=== PATIENT | female | born 1955 | race Caucasian/White ===

== ENCOUNTER → 2022-02-02 | Outpatient (CLI) | payer MEDICARE, OTHER ==
[~2022-02-02] MED LIST: REGADENOSON 0.4 MG/5 ML DISP.SYRIN. IV ONE
--- NOTE | 2022-02-03 07:48 | RAD ---
MR#: [id number] Date of Study: 02/02/2022 Ordering Physician: QIAN MURRAY, Referring Physician: ALFREDO HAUSER Tech: GLENIS Graham, ARRT (R) (N) APPROVED REPORT Test Type: Pharmacological Stress Nurse/Tech: Guerita Saldana R.N. Test Indications: dyspnea on exertion, svt Cardiac History: htn, Medications: see ehr Medical History: see ehr Resting ECG: sr Resting Heart Rate: 61 bpm Resting Blood Pressure: 133/74mmHg Pretest Chest Pain: No chest pain Nurse/Tech Notes lungs cta, heart tones regular Consent: The procedure was explained to the patient in lay terms. Informed consent was witnessed. Matt eout was entered into [employer]. History and Stress Test performed by RT Bahman (R) (N) Pharm. Details Pharmacologic stress testing was performed using 0.4mg per 5ml of regadenoson given intravenously ove r 7-10 seconds. Stress Symptoms No chest pain or symptoms.Nausea POST EXERCISE Reason for Termination: Infusion complete Target HR: No Max HR: 76 bpm Max Blood Pressure: 150/74mmHg Chest Pain: No. Arrhythmia: No. ST Change: No. INTERPRETATION Stress EKG Conclusion: Baseline EKG showed sinus rhythm. No ischemic changes at peak stress. No arr hythmias. Imaging Protocol IMAGE PROTOCOL: Rest Tc-99m/stress Tc-99m 1 day Rest: Stress: Viability: Radiopharm.Tc99m CwfsasuyiQl37e Sestamibi Dose10.3mCi 30.5mCi Img Date 02/02/2022 02/02/2022 Inj-Img [id number]. 60min. Rest Admin Site:IV - Left AntecubitalAdministrator:RT Louisa RogersR)(N) Stress Admin Site: IV - Left AntecubitalAdministrator: RT Richie Ruggiero)(N) STRESS DATA End Diast. Vol.64.0mlLVEDV index BSA38.0ml End Syst. Vol.13.0mlLVESV index BSA7.0ml Myocardial Xvoy265.0gEject. Anbnqqzs75.0% Stress Scores Regional WT1.00Summed WT5.00 Regional WM0.00Summed WM1.00 Study quality was good. Left Ventricular size was Normal at Rest and Stress. Lung uptake was . Left Ventricular ejection fraction is 77%. The rest and stress images show normal perfusion, normal contraction and thickening. LV Perf. Quant 17 Seg. SSS1.00 17 Seg. SRS6.00 17 Seg. SDS0.00 Stress Defect Extent (% LAD)0.00Rest Defect Extent (% LAD)9.40Rev. Defect Extent (% LAD)0.00 Stress Defect Extent (% LCX) 0.00Rest Defect Extent (% LCX)0.00Rev. Defect Extent (% LCX)0.00 Stress Defect Extent (% RCA)0.00Rest Defect Extent (% RCA)7.80Rev. Defect Extent (% RCA)0.00 Stress Defect Extent (% ROBERT)0.00Rest Defect Extent (% ROBERT)8.90Rev. Defect Extent (% ROBERT)0.00 Conclusion 1. Regadenoson cardioisotope stress test did not show any evidence of ischemia or infarct. 2. Normal left ventricular systolic function with ejection fraction calculated at 77%. 3. Low risk for cardiac events. Signed by : Qian Murray, Electronically Approved : 02/03/2022 07:47:58
--- NOTE | 2022-02-03 07:53 | CARD ---
MR#: [id number] Date of Study: 02/02/2022 Ordering Physician: QIAN MURRAY, Referring Physician: QIAN MURRAY Tech: Rosalva Jordan [facility] APPROVED REPORT EXAM: Two-dimensional and M-mode echocardiogram with Doppler and color Doppler. Other Information Quality : AverageHR: 62bpm Rhythm : NSR INDICATION SVT RISK FACTORS Hypertension Hyperlipidemia 2D DIMENSIONS Left Atrium(2D)3.2 (1.6-4.0cm)IVSd1.0 (0.7-1.1cm) Aortic Root(2D)3.0 (2.0-3.7cm)LVDd3.8 (3.9-5.9cm) LVOT Diameter2.0 (1.8-2.4cm)PWd1.0 (0.7-1.1cm) LVDs2.3 (2.5-4.0cm)FS (%) 39.2 % SV43.4 mlLVEF(%)70.5 (>50%) Aortic Valve AoV Peak Nathen.187.1cm/sAoV VTI41.7cm AO Peak GR.14.0mmHgLVOT Peak Nathen.142.9cm/s AO Mean GR.7mmHgAVA (VMAX)2.31cm2 Mitral Valve MV E Ztljbury24.3cm/sMV DECEL WJRV055mi MV A Ipztslxn106.0cm/sE/A Ratio0.9 Pulmonary Valve PV Peak Fepgnojf884.0cm/s Tricuspid Valve TR P. Wzbdgdmx341mb/sTR Peak Gr.28mmHg LEFT VENTRICLE The left ventricle is normal size. There is normal left ventricular wall thickness. The left ventricu lar systolic function is normal. Estimated ejection fraction 60%. There is normal LV segmental wall m otion. Transmitral Doppler flow pattern is Grade I-abnormal relaxation pattern. RIGHT VENTRICLE The right ventricle is normal size. There is normal right ventricular wall thickness. The right ventr icular systolic function is normal. ATRIA The left atrium size is normal. The right atrium size is normal. The interatrial septum is intact wit h no evidence for an atrial septal defect or patent foramen ovale as noted on 2-D or Doppler imaging. AORTIC VALVE The aortic valve is normal in structure and function. Doppler and Color Flow revealed no significant aortic regurgitation. There is no significant aortic valvular stenosis. MITRAL VALVE The mitral valve is normal in structure and function. There is no evidence of mitral valve prolapse. There is no mitral valve stenosis. Doppler and Color-flow revealed trace mitral regurgitation. TRICUSPID VALVE The tricuspid valve is normal in structure and function. Doppler and Color Flow revealed mild tricusp id regurgitation. Estimated PAP 30-32 mmHg. There is no tricuspid valve stenosis. PULMONIC VALVE The pulmonary valve is normal in structure and function. Doppler and Color Flow revealed no pulmonic valvular regurgitation. GREAT VESSELS The aortic root is normal in size. The ascending aorta is normal in size. The IVC is normal in size a nd collapses >50% with inspiration. PERICARDIAL EFFUSION There is no evidence of significant pericardial effusion. Critical Notification Critical Value: No <Conclusion> The left ventricular systolic function is normal. Estimated ejection fraction 60%. There is normal LV segmental wall motion. Transmitral Doppler flow pattern is Grade I-abnormal relaxation pattern. Trace mitral regurgitation. Mild tricuspid regurgitation. Estimated PAP 30-32 mmHg. There is no evidence of significant pericardial effusion. Signed by : Qian Murray, Electronically Approved : 02/03/2022 07:53:01
== END ==
LOC: NM 09:41
PROVIDERS: ATTEND Internal Medicine Cardiovascular Disease
DX: I07.1 Rheumatic tricuspid insufficiency (principal); R06.00 Dyspnea, unspecified; I47.1 Supraventricular tachycardia
CPT/HCPCS: 78452; 93017; 93306; A9500; J2785; C8929